=== PATIENT | male | born 1980 | race African-American/Black ===

== ENCOUNTER 2023-11-12 10:40 | Emergency (ER) | payer MEDICAID ==
[~2023-11-12] VITALS: Ht 188 cm; Wt 157.4 kg
[2023-11-12] MEDS ORDERED: HYDROCODONE/APAP 10/325MG TABLET ONE (11:36)
[2023-11-12] MEDS: HYDROCODONE/APAP 10/325MG TABLET PO ONE (11:42)
[2023-11-12] MEDS ORDERED: HYDR-4303 PO (12:15)
[2023-11-12] MEDS ORDERED: IBUP-1955 PO (12:15)
[2023-11-12 13:06] VITALS: BP 121/69; TEMP 98.4; O2SAT 100
== END 2023-11-12 13:06 | disposition home or self-care (01) ==
LOC: ER 10:51
DX: M25.562 Pain in left knee (principal); M25.462 Effusion, left knee; I10 Essential (primary) hypertension; E78.00 Pure hypercholesterolemia, unspecified
CPT/HCPCS: 73564-TC; 93971-TC